=== PATIENT | female | born 2000 | race Two or more races ===

== ENCOUNTER 2025-05-30 18:53 | Emergency (ER) | payer MEDICAID, SELFPAY ==
[2025-05-30 19:05] VITALS: BP 117/79; PULSE 98; RESP 18; TEMP 36.9; O2SAT 95
[2025-05-30] MEDS: DiphenhydrAMINE ELIX 25 MG/10 ML UDC PO (19:30)
[2025-05-30] MEDS: DEXAMETHASONE SOD PHOS INJ 10 MG/ML VIAL IM (19:30)
--- NOTE | 2025-05-30 21:01 | PD.EDANIML ---
ED Animal Bite RME/HPI General Chief Complaint: Hand/Wrist Problems Stated Complaint: Left hand swollen today, stung last night Time Seen by Provider: 05/30/25 19:06 Arrival date/time: 05/30/25 18:53 This is a case of 24-year-old female with no medical history came into the emergency room due to left hand pain swelling and redness due to bee sting since last night due to worsening of the symptoms this patient decided to sought consult here in the emergency room no throat or facial swelling patient can speak full sentences no shortness of breath Limitations: no limitations Related Data Previous Rx's ?Medication ?Instructions ?Recorded hydrocodone 5 mg-acetaminophen 325 1 tab PO Q6H PRN pain #30 tabs 11/03/ mg tablet ([place]) polyethylene glycol 3350 17 4 g PO QDAY #238 grams 06/05/23 gram/dose oral powder (Miralax) diphenhydramine HCl 25 mg capsule 25 mg PO TID PRN allergic reaction 05/30/25 (Benadryl) #20 caps doxycycline monohydrate 100 mg 100 mg PO BID #20 tabs 05/30/25 tablet prednisone 20 mg tablet See Taper PO QDAY 5 days #5 tabs 05/30/25 Allergies Allergy/AdvReac Type Severity Reaction Status Date / Time No Known Allergies Allergy Verified 05/30/25 18:56 Review of Systems Review of Systems Systems Reviewed: All systems reviewed, normal except as documented Constitutional Constitutional: Reports system reviewed and no additional complaints, except as documented and Reports as per HPI Cardiovascular Cardiovascular: Reports system reviewed and no additional complaints, except as documented and Reports as per HPI Respiratory Respiratory: Reports system reviewed and no additional complaints, except as documented and Reports as per HPI Gastrointestinal Gastrointestinal: Reports system reviewed and no additional complaints, except as documented and Reports as per HPI Musculoskeletal Musculoskeletal: Reports system reviewed and no additional complaints, except as documented and Reports as per HPI Integumentary/Breasts Skin/Breast: Reports system reviewed and no additional complaints, except as documented and Reports as per HPI Neurologic Neurologic: Reports system reviewed and no additional complaints, except as documented and Reports as per HPI Past Medical History Past Medical History NEUROLOGIC: Negative Seizures REPRODUCTIVE: Positive Genital Herpes Social History SMOKING STATUS: Current every day smoker SUBSTANCE USE: marijuana ED Exam General Limitations: Present no limitations General appearance: Present alert, in no apparent distress and other (Patient is awake alert oriented not in distress nontoxic looking well-hydrated well-nourished) Head Head exam: Present atraumatic, normocephalic and normal inspection Eye Eye exam: Present normal appearance, PERRL and EOMI ENT ENT exam: Present normal exam, normal oropharynx, mucous membranes moist and other (Normal HEENT exam no drooling of saliva no facial or throat swelling) Neck Neck exam: Present normal inspection, full ROM and trachea midline; Absent tenderness, meningismus, lymphadenopathy or thyromegaly Chest Chest inspection: Present normal inspection and symmetric chest wall rise; Absent tenderness or rash Respiratory Respiratory exam: Present normal lung sounds bilaterally; Absent respiratory distress, wheezes, stridor, accessory muscle use or prolonged expiratory phase Cardiovascular Cardiovascular exam: Present regular rate, normal rhythm and normal heart sounds; Absent bradycardia, tachycardia, irregular rhythm, systolic murmur or diastolic murmur Abdominal Exam Abdominal exam: Present soft and normal bowel sounds; Absent distention, tenderness, guarding, rebound, rigidity, diminished bowel sounds, hyperactive bowel sounds, hypoactive bowel sounds or organomegaly Extremities Exam Extremities exam: Present normal inspection and full ROM Back Exam Back exam: Present normal inspection and full ROM Neurological Exam Neurological exam: Present alert, oriented X3, CN II-XII intact, normal gait and reflexes normal; Absent motor sensory deficit Psychiatric Psychiatric exam: Present normal affect and normal mood Skin Skin exam: Present warm, dry, intact, normal color and other (Noted mild tenderness on the dorsal aspect of the left hand mild swelling mild redness no abscess no cellulitis no ulcer ROM intact neurovascular intact) Course Quality Measures none Orders Category Date Time Status Dexamethasone Inj [Decadron Inj] Med 05/30/25 19:13 Discontinued 10 mg IM X1 ONE DiphenhydrAMINE [Benadryl] Med 05/30/25 19:13 Discontinued 25 mg PO X1 ONE Vital Signs Vital signs: Vital Signs Temperature 98.5 F 05/30/25 19:05 Pulse Rate 98 05/30/25 19:05 Respiratory Rate 18 05/30/25 19:05 Blood Pressure 117/79 05/30/25 19:05 Pulse Oximetry (%) 95 05/30/25 19:05 Oxygen Delivery Method Room Air 05/30/25 19:05 Oxygen saturation is 95% on room air normal Animal Bite MDM Narrative MDM Narrative:: This is a case of 24-year-old female with no medical history came into the emergency room due to left hand pain swelling and redness due to bee sting since last night due to worsening of the symptoms this patient decided to sought consult here in the emergency room no throat or facial swelling patient can speak full sentences no shortness of breath physical examination patient is awake alert oriented not in distress nontoxic looking well-hydrated well-nourished no throat or facial swelling HEENT exam is normal clear breath sound no signs and symptoms of angioedema no anaphylaxis patient had mild tenderness on the left dorsal aspect of the hand with mild swelling and redness but no cellulitis no abscess based on my physical examination and history patient symptoms suggestive of allergic reaction or bee sting thus patient was given Benadryl and dexamethasone patient was also discharged with cephalexin for possible infection and prednisone with Benadryl patient will follow-up with PCP in 2 days for reevaluation worsening symptoms or any emergent concern return precaution in the ER is advised Patient was discharged with comfortable condition walking with stable gait. Patient verbalized no further complains explained diagnosis and answered patient question. Patient is comfortable with the proposed management plan including the need to follow up with his/her primary care physician and any specialist if applicable Discussed patient for any urgent condition or worsening sx, He/She needed to go to emergency room immediately or call 911. Patient acknowledge the responsibility to follow up as instructed and to monitor her/his symptoms. For any persistence of the symptoms for more than 3-5 days return precaution advised. Discussed the result of the test and was given printed discharge instruction Patient data External records reviewed:: [facility] previous records Clinical information provided by:: patient Social determinants that could affect healthcare access:: none Patient has the following chronic illnesses:: None How is presenting disease/condition affected by chronic disease/condition?: no chronic disease Evaluation data The following diagnostics were reviewed and interpreted by me:: other (specify) (None) Lab and/or radiology exams considered but not ordered:: None Interpretation Summary: None Medications / Prescriptions Medications or Prescriptions considered but not ordered:: Given Medication administrations:: Medication Administration History Discontinued Medications Dexamethasone Sodium Phosphate (Dexamethasone Sod Phos Inj 10 Mg/Ml Vial) 10 mg IM X1 ONE Stop: 05/30/25 19:14 Last Admin: 05/30/25 19:30 Dose: 10 mg Documented By: FRANTZ Diphenhydramine HCl (Diphenhydramine Elix 25 Mg/10 [facility]) 25 mg PO X1 ONE Stop: 05/30/25 19:14 Last Admin: 05/30/25 19:30 Dose: 25 mg Documented By: MF Given Consultations Consultation(s) initiated? (list below): No Diagnosis Differential diagnosis animal bite: other (Bee sting allergic reaction) Most likely diagnosis given after review of the tests above:: Allergic reaction to bee sting Admission Indicated Admission indicated?: not indicated Explain why admission is indicated or not indicated:: Not indicated Admission Request Was there a request for admission?: No Admission Attestation Admission request attestation: Not indicated Disposition Plan Disposition Plan: Discharge Discharge Attestation Discharge Attestation: The patient and all family members were given an opportunity to ask questions and understood the discharge instructions. Discharge instructions specifically effects, indications for sooner follow up or return to the emergency department, and the expected course of current diagnosis. Patient condition: Stable Discharge Plan Plan Patient Disposition: HOME (Self Care) Patient condition on transfer: Stable Prescriptions/Referrals Prescriptions/Med Rec: New doxycycline monohydrate 100 mg tablet 100 mg PO BID Qty: 20 0RF prednisone 20 mg tablet See Taper PO QDAY 5 Days Qty: 5 0RF Taper: Prednisone Taper 20 mg DAILY for 2 Days and 0 Hour 10 mg DAILY for 2 Days and 0 Hour 5 mg DAILY for 7 Days and 0 Hour diphenhydramine HCl [Benadryl] 25 mg capsule 25 mg PO TID PRN (Reason: allergic reaction) Qty: 20 0RF No Action hydrocodone-acetaminophen [[place]] 5-325 mg tablet 1 tab PO Q6H MDD 30 PRN (Reason: pain) Qty: 30 0RF polyethylene glycol 3350 [Miralax] 17 gram/dose powder 4 g PO QDAY Qty: 238 0RF Problem List Clinical Impression: Allergic reaction to bee sting Patient/Caregiver Discharge Instructions Education Materials: ED Bite Sting Insect Gen Allergic React Additional Instructions: Follow-up with your primary care physician in 2 days for worsening symptoms or any emergent concern call 911 or go to the nearest emergency room take your medication as directed finish the course of antibiotic keep the area clean and dry Print Language: Mongolian Stand Alone Forms: Barbara Award Info., Patient Portal Info Letter PA/CONTINUOUS MINER Supervising Physician PA/CONTINUOUS MINER Supervising Physician: Dr. Anny Champion
== END 2025-05-30 20:03 | disposition home or self-care (01) ==
LOC: SERX 19:33
PROVIDERS: Emergency Provider Emergency Medicine
DX: T63.441A Toxic effect of venom of bees, accidental (unintentional), initial encounter (principal)
CPT/HCPCS: 96372; 99283; J1100; A9270

== ENCOUNTER 2025-07-02 21:54 | Emergency (ER) | payer MEDICAID, SELFPAY ==
[2025-07-02 21:54] VITALS: BMI 17.4
[2025-07-02 22:15] VITALS: BP 148/99; PULSE 124; RESP 18; TEMP 37.3; O2SAT 95
--- NOTE | 2025-07-02 22:17 | PD.EDDENTL ---
ED Dental RME/HPI General Chief complaint: Dental/Oral/Throat Stated complaint: RIGHT TOP/BOTTOM DENTAL PAIN Time Seen by Provider: 07/02/25 22:10 Arrival date/time: 07/02/25 21:54 24-year-old female patient came in for evaluation regarding right upper outer premolar dental pain. This been ongoing since early today sudden onset of right upper premolar and right lower premolar dental pain, with cavity, severity moderate. Pain is described as throbbing. Patient denies any fever denies any difficulty swallowing. Patient told me that yesterday she noticed that her filling fell out. No other complaints noted. No medication was taken prior to ER visit. Related Data Previous Rx's ?Medication ?Instructions ?Recorded hydrocodone 5 mg-acetaminophen 325 1 tab PO Q6H PRN pain #30 tabs 11/03/ mg tablet ([place]) polyethylene glycol 3350 17 4 g PO QDAY #238 grams 06/05/23 gram/dose oral powder (Miralax) diphenhydramine HCl 25 mg capsule 25 mg PO TID PRN allergic reaction 05/30/25 (Benadryl) #20 caps doxycycline monohydrate 100 mg 100 mg PO BID #20 tabs 05/30/25 tablet clindamycin HCl 300 mg capsule 300 mg PO TID #21 caps 07/02/25 (Cleocin HCl) ketorolac 10 mg tablet 10 mg PO Q8H PRN pain 5 days #20 07/02/25 tabs Allergies Allergy/AdvReac Type Severity Reaction Status Date / Time No Known Allergies Allergy Verified 07/02/25 21:56 Review of Systems Review of Systems Narrative Review of Systems: Review of system reviewed and within normal limits except mentioned in HPI ED Exam Narrative Physical exam: VITAL SIGNS: Reviewed. GENERAL APPEARANCE: Alert and interactive, follows commands, no acute distress, HEAD AND FACE: Non-traumatic. ENT: PERRL, pink conjunctivitis, eyelid no trauma, Mucous membrane moist. Right upper premolar and right lower premolar dental cavity, with tenderness nonfluctuant, uvula in the midline. NECK: Supple, nontender, no nuchal rigidity. CHEST: No tenderness, no crepitus, no paradoxical movement, no retractions. RECTAL: Deferred. GENITAL: Deferred. NEUROLOGICAL: Gross motor function intact sensory function intact, Appropriate for age. MUSCULOSKELETAL: low back nontender, full range of motion. EXTREMITIES: Nontender, full range of motion. SKIN: Color pink, dry, no rash, no lacerations, no abrasions, no contusions. LYMPHATICS: Deferred. Course Quality Measures none Orders Category Date Time Status Clindamycin [Cleocin] Med 07/02/25 22:17 Once 300 mg PO X1 ONE Ketorolac Inj [Toradol Inj] Med 07/02/25 22:17 Once 30 mg IM X1 ONE Vital Signs Vital signs: Vital Signs Temperature 99.2 F 07/02/25 22:15 Pulse Rate 124 H 07/02/25 22:15 Respiratory Rate 18 07/02/25 22:15 Blood Pressure 148/99 H 07/02/25 22:15 Pulse Oximetry (%) 95 07/02/25 22:15 Dental / Oral MDM Narrative MDM Narrative:: 24-year-old female patient came in for evaluation regarding right upper outer premolar dental pain. This been ongoing since early today sudden onset of right upper premolar and right lower premolar dental pain, with cavity, severity moderate. Pain is described as throbbing. Patient denies any fever denies any difficulty swallowing. Patient told me that yesterday she noticed that her filling fell out. No other complaints noted. No medication was taken prior to ER visit. Patient was started on clindamycin and Toradol IM. Advised the patient to see a dentist in the morning. Patient agrees with the plan. I&D is not needed at this time stable for discharge home Patient data External records reviewed:: None Clinical information provided by:: patient Social determinants that could affect healthcare access:: none (Chronic smoker) Patient has the following chronic illnesses:: None How is presenting disease/condition affected by chronic disease/condition?: no chronic disease Evaluation data The following diagnostics were reviewed and interpreted by me:: other (specify) (None) Lab and/or radiology exams considered but not ordered:: None Interpretation Summary: None Medications / Prescriptions Medications or Prescriptions considered but not ordered:: None Medication administrations:: Medication Administration History Clindamycin HCl (Clindamycin 150 Mg Capsule) 300 mg PO X1 ONE Stop: 07/02/25 22:18 Ketorolac Tromethamine (Ketorolac Inj 30 Mg/Ml Vial) 30 mg IM X1 ONE Stop: 07/02/25 22:18 Clindamycin and Toradol Consultations Consultation(s) initiated? (list below): No Diagnosis Dental Differential Diagnosis: dental caries, toothache and dental abscess Most likely diagnosis given after review of the tests above:: Infected dental caries Admission Indicated Admission indicated?: not indicated Admission Request Was there a request for admission?: No Disposition Plan Disposition Plan: Discharge Discharge Attestation Discharge Attestation: The patient was given an opportunity to ask questions and understood the discharge instructions. Discharge instructions specifically effects, indications for sooner follow up or return to the emergency department, and the expected course of current diagnosis. Patient condition: Stable Discharge Plan Plan Patient Disposition: HOME (Self Care) Discharge Disposition comment: Stable Prescriptions/Referrals Prescriptions/Med Rec: New clindamycin HCl [Cleocin HCl] 300 mg capsule 300 mg PO TID Qty: 21 0RF ketorolac 10 mg tablet 10 mg PO Q8H PRN (Reason: pain) 5 Days Qty: 20 0RF No Action hydrocodone-acetaminophen [[place]] 5-325 mg tablet 1 tab PO Q6H MDD 30 PRN (Reason: pain) Qty: 30 0RF polyethylene glycol 3350 [Miralax] 17 gram/dose powder 4 g PO QDAY Qty: 238 0RF doxycycline monohydrate 100 mg tablet 100 mg PO BID Qty: 20 0RF diphenhydramine HCl [Benadryl] 25 mg capsule 25 mg PO TID PRN (Reason: allergic reaction) Qty: 20 0RF Problem List Clinical Impression: Infected dental caries Patient/Caregiver Discharge Instructions Discharge Activity: activity as tolerated Education Materials: Understanding Tooth Decay Additional Instructions: Thank you for the opportunity for serving you today. You are stable for discharged . You are advised to: Follow-up with your dentist in 1 to 2 days Return to ED for worsening of symptoms Increase oral fluids Take medication as prescribed Print Language: Scottish Stand Alone Forms: Barbara Award Info., Patient Portal Info Letter PA/GABI Supervising Physician CHERIE/GABI Supervising Physician: MD Lilly
[2025-07-02] MEDS: KETOROLAC INJ 30 MG/ML VIAL IM (22:31)
[2025-07-02] MEDS: CLINDAMYCIN 150 MG CAPSULE 300 MG PO (22:31)
== END 2025-07-02 22:40 | disposition home or self-care (01) ==
LOC: SERX 22:43
PROVIDERS: Emergency Provider Emergency Medicine
DX: K04.7 Periapical abscess without sinus (principal); K02.9 Dental caries, unspecified
CPT/HCPCS: 96372; 99282; J1885; A9270